=== PATIENT | male | born 1960 | race American Indian/Alaskan Native ===

== ENCOUNTER 2021-04-03 20:25 | Emergency (ER) | payer OTHER ==
--- NOTE | 2021-04-03 20:51 | Event Note ---
ED Screening Note ED Screening Note: 60-year-old male smoker with a past medical history of hypertension and CAD presents emerge department complaining of 1 day history of left-sided substernal chest pressure which worsens with activity. Ports no coughing, no fever chills sweats. No hemoptysis. This initial assessment/diagnostic orders/clinical plan/treatment(s) is/are subject to change based on patients health status, clinical progression and re- assessment by fellow clinical providers in the ED. Further treatment and workup at subsequent clinical providers discretion. Patient/guardian urged not to elope from the ED as their condition may be serious if not clinically assessed and managed. Initial orders include: Chest pain protocol
[2021-04-03] MEDS ORDERED: hydrALAZINE 20 MG/1 ML INJ IV ONE (21:17)
[2021-04-03 21:19] LABS: Basophils # (Auto) 0.1 K/mm3 (0.0-0.1); Basophils % (Auto) 1.9 % (0.0-1.8); Eosinophils # (Auto) 0.5 K/mm3 (0.0-0.4); Eosinophils % (Auto) 8.5 % (0.0-4.3); Lymphocytes # (Auto) 1.3 K/mm3 (1.2-5.4); Lymphocytes % (Auto) 21.1 % (13.4-35.0); Mean Corpuscular HGB Conc 35 % (32-34); Mean Corpuscular Volume 98 fl (84-94); Monocytes # (Auto) 0.5 K/mm3 (0.0-0.8); Monocytes % (Auto) 9.1 % (0.0-7.3); Platelet Count 160 K/mm3 (140-440); Red Blood Count 5.23 M/mm3 (3.65-5.03); Red Cell Distribution Width 13.9 % (13.2-15.2)
--- NOTE | 2021-04-03 21:25 | XRay Report ---
CHEST 1 VIEW INDICATION: Chest Pain. COMPARISON: None FINDINGS: SUPPORT DEVICES: None. HEART: Within normal limits. LUNGS/PLEURA: No acute air space or interstitial disease. ADDITIONAL FINDINGS: None. IMPRESSION: 1. No acute findings. Signer Name: Erik Galeas MD Signed: 04/03/2021 9:20 PM Workstation Name: [id number]
[2021-04-03 21:38] LABS: Alanine Aminotransferase 101 units/L (7-56); Albumin 4.3 g/dL (3.9-5); BUN/Creatinine Ratio 13; Blood Urea Nitrogen 10 mg/dL (9-20); Calcium 9.1 mg/dL (8.4-10.2); Hemolysis Index 6
[2021-04-03] MEDS ORDERED: THIAMINE 100 MG TAB PO ONE (21:42)
[2021-04-03] MEDS ORDERED: MULTIVITAMINS ,THERAPEUTIC TAB PO ONE (21:42)
--- NOTE | 2021-04-03 21:47 | Emergency Department Report ---
ED Chest Pain HPI - General Chief Complaint: Chest Pain Stated Complaint: HEART ISSUES Time Seen by Provider: 04/03/21 20:50 Source: patient Mode of arrival: Ambulatory Limitations: No Limitations - History of Present Illness Initial Comments: This is a 60-year-old -[place] male presents to the emergency department with a complaint of midsternal chest pain that started just prior to presentation. It is associated with some shortness of breath, but the patient denies any nausea, vomiting, diaphoresis. Patient does admit to alcohol use, including today, but denies any history of alcohol dependence or withdrawal syndrome. He also admits to tobacco use, but denies any illicit drug use. He has a past medical history of peripheral arterial disease, hypertension, coronary disease with [address] Patient does not have a local primary care physician or destination imagination coordinator as he says he moved here from [place] about 1 week ago. He last had a stress test about 2 or 3 years ago. - Related Data Allergies Allergy/AdvReac Type Severity Reaction Status Date / Time No Known Allergies Allergy Unverified 04/03/21 20:36 Heart Score - HEART Score History: Slightly suspicious EKG: Non-specific Age: 45-65 Risk factors: > 3 risk factors or hx of atherosclerotic disease Troponin: < normal limit HEART Score: 4 - EKG Read Time Time EKG Completed: 20:28 EKG Read Time: 20:30 - Critical Actions Critical Actions: 4-6 pts:12-16.6% risk of adverse cardiac event. Should be admitted ED Review of Systems ROS: Stated complaint: HEART ISSUES Other details as noted in HPI Comment: All other systems reviewed and negative Constitutional: denies: chills, fever Eyes: denies: eye pain, vision change ENT: denies: ear pain, throat pain Respiratory: shortness of breath. denies: cough Cardiovascular: chest pain. denies: palpitations Gastrointestinal: denies: abdominal pain, vomiting Genitourinary: denies: dysuria, discharge Musculoskeletal: denies: joint swelling, arthralgia Skin: denies: rash, lesions Neurological: denies: headache, weakness ED Physical Exam - General Limitations: No Limitations - Other Other exam information: GENERAL: The patient is well-developed well-nourished. HENT: Normocephalic. Atraumatic. Patient has moist mucous membranes. EYES: Extraocular motions are intact. NECK: Supple. Trachea is midline. CHEST/LUNGS: Clear to auscultation. There is no respiratory distress noted. HEART/CARDIOVASCULAR: Regular. There is no tachycardia. There is no murmur. ABDOMEN: Abdomen is soft, nontender. Patient has normal bowel sounds. There is no abdominal distention. SKIN: Skin is warm and dry. NEURO: The patient is awake, alert, and oriented. The patient is cooperative. Normal speech. MUSCULOSKELETAL: There is no tenderness or deformity. There is no limitation range of motion. ED Course Vital Signs 04/03/21 04/03/21 04/03/21 20:33 20:37 22:00 Temperature 97.4 F L 97.8 F Pulse Rate 104 H 88 Respiratory 18 20 Rate Blood Pressure 214/134 Blood Pressure 152/99 [Left] O2 Sat by Pulse 98 Oximetry 04/04/21 00:00 Temperature Pulse Rate 89 Respiratory 20 Rate Blood Pressure Blood Pressure 142/90 [Left] O2 Sat by Pulse 97 Oximetry PRANAV score - Pranav Score Age > 65: (0) No Aspirin use within the Past 7 Days: (0) No 3 or more CAD Risk Factors: (1) Yes 2 or more Angina events in past 24 hrs: (1) Yes Known CAD with more than 50% Stenosis: (1) Yes Elevated Cardiac Markers: (0) No ST Deviation Greater than 0.5mm: (1) Yes PRANAV Score: 4 ED Medical Decision Making - Lab Data Result diagrams: 04/03/21 20:56 04/03/21 20:56 Lab Results 04/03/21 04/03/21 04/03/21 Range/Units 20:56 20:56 20:59 WBC 6.0 (4.5-11.0) K/mm3 RBC 5.23 H (3.65-5.03) M/mm3 Hgb 18.0 H (11.8-15.2) gm/dl Hct 51.0 H (35.5-45.6) % MCV 98 H (84-94) fl MCH 34 H (28-32) pg MCHC 35 H (32-34) % RDW 13.9 (13.2-15.2) % Plt Count 160 (140-440) K/mm3 Lymph % (Auto) 21.1 (13.4-35.0) % [place] % (Auto) 9.1 H (0.0-7.3) % Eos % (Auto) 8.5 H (0.0-4.3) % Baso % (Auto) 1.9 H (0.0-1.8) % Lymph # (Auto) 1.3 (1.2-5.4) K/mm3 [place] # (Auto) 0.5 (0.0-0.8) K/mm3 Eos # (Auto) 0.5 H (0.0-0.4) K/mm3 Baso # (Auto) 0.1 (0.0-0.1) K/mm3 Seg Neutrophils % 59.4 (40.0-70.0) % Seg Neutrophils # 3.6 (1.8-7.7) K/mm3 Sodium 138 (137-145) mmol/L Potassium 3.2 L (3.6-5.0) mmol/L Chloride 100.4 (98-107) mmol/L Carbon Dioxide 27 (22-30) mmol/L Anion Gap 14 mmol/L BUN 10 (9-20) mg/dL Creatinine 0.8 (0.8-1.3) mg/dL Estimated GFR > 60 ml/min BUN/Creatinine Ratio 13 % Glucose 98 (75-100) mg/dL Calcium 9.1 (8.4-10.2) mg/dL Total Bilirubin 0.30 (0.1-1.2) mg/dL AST 123 H (5-40) units/L ALT 101 H (7-56) units/L Alkaline Phosphatase 45 (35-129) units/L Troponin T < 0.010 (0.00-0.029) ng/mL Total Protein 7.6 (6.3-8.2) g/dL Albumin 4.3 (3.9-5) g/dL Albumin/Globulin Ratio 1.3 % Plasma/Serum Alcohol 0.29 H (0-0.07) % - EKG Data -: EKG Interpreted by Or EKG shows normal: sinus rhythm, axis, intervals, QRS complexes (LVH), ST-T waves (Anterolateral ST depressions) Rate: tachycardia (108 bpm) - EKG Data When compared to previous EKG there are: previous EKG unavailable Interpretation: other (Sinus tachycardia at 108 bpm, LVH, ST depressions in the anterior lateral leads. No ST elevation OR) - Radiology Data Radiology results: image reviewed interpreted by me: Chest x-ray does not show any acute process. There are no pleural effusions, obvious pneumonia and there is no pneumothorax. No widened mediastinum. - Medical Decision Making This patient presented to the emergency department with a complaint of substernal chest pain that started just prior to presentation. However, by the time of my initial evaluation the patient says that his chest pain has resolved and he is asymptomatic. His EKG showed some ST depressions to the anterior lateral leads, but no ST elevation. Chest x-ray does not show any pneumonia, pleural effusions, pneumothorax, widened mediastinum, or any other acute process. Patient's initial labs were mostly unremarkable including CBC, metabolic panel, and a negative troponin. However the blood alcohol level did come back at 0.29. The patient's initial blood pressure was a systolic greater than 200. However came down to a much more reasonable level, about systolic 140, without any antihypertensive medication given. I spoke to the patient in great detail regarding his lab and imaging results. We discussed his heart and PRANAV score which came back moderate, and for this reason I explained my recommendation for the patient to be admitted to the hospital for further evaluation and treatment. At this point the patient refuses admission. He says that he has been pain-free since he got back to the main emergency department and says that he has outpatient follow-up for cardiology through the [facility]. I once again explained to the patient that, while his initial troponin and evaluation has been negative, that his work-up has not yet been completed and that he is a moderate risk for an adverse cardiac event. The patient's initial alcohol level was 0.29. At the time of this discussion with the patient, his blood alcohol level was more likely closer to 0.2. He appears clinically sober. He is awake, oriented, AAO x3, and appears to have a normal decision-making capacity. I explained to the patient that leaving AGAINST MEDICAL ADVICE at this time could lead to a return of his chest pain, heart attack, debility, coma or even . Despite understanding these risks the patient has decided to leave [facility] and has signed the papers. Due to his alcohol, however, the patient was not allowed to leave on his own volition and he called for his friend Berny to come and pick him up and take responsibility for him. We did visualize Berny before the patient was released. The patient understands that he can return to this emergency department at any time if he changes his mind about admission, further evaluation, or with any acute distress. Critical Care Time: No Critical care attestation.: If time is entered above; I have spent that time in minutes in the direct care of this critically ill patient, excluding procedure time. ED Disposition Clinical Impression: Acute chest pain, Tobacco use disorder Hypertension Qualifiers: Hypertension type: primary hypertension Qualified Code(s): I10 - Essential (primary) hypertension Alcohol intoxication Qualifiers: Complication of substance-induced condition: uncomplicated Qualified Code(s): F10.920 - Alcohol use, unspecified with intoxication, uncomplicated Disposition: 07 LEFT AGAINST MEDICAL ADVICE Is pt being admited?: No Instructions: Nonspecific Chest Pain, Adult, Tobacco Use Disorder, Hype rtension, Adult, Chest Pain (ED), Hypertension (ED) Additional Instructions: Return to the emergency department if you change your mind about further evaluation, with any return of your chest pain, or with any acute distress. Please try and quit smoking. Referrals: [facility] [Primary Care Provider] - [facility] Forms: AMA Form Time of Disposition: 23:26
[2021-04-03] MEDS ORDERED: ASPIRIN 81 MG TAB CHEW PO ONE (23:06)
[2021-04-03] MEDS ORDERED: POTASSIUM CHLORIDE ER 20 MEQ TAB PO ONE (23:06)
[2021-04-03] MEDS ORDERED: THIAMINE 100 MG, FOLIC ACID 1 MG, MULTIPLE VITAMIN INJ, ADULT 10 ML in SODIUM CHLORIDE ... IV ONE (23:46)
[2021-04-04 00:42] VITALS: BP 142/90
--- NOTE | 2021-04-04 14:50 | Electrocardiograph Report ---
[facility] Test Date: 2021-04-03 Test Time: 20:28:55 Pat Name: QUETA NATH Department: Room: Gender: M [employer]: : 1960 Requested By: VISHNU MUNOZ Order Number: [id number] Reading MD: Miles Ward Measurements Intervals [place] Rate: 108 P: 70 CA: 171 QRS: 72 QRSD: 99 T: 58 QT: 339 QTc: 456 Interpretive Statements Sinus tachycardia Repol abnrm suggests ischemia, diffuse leads No previous ECG available for comparison Electronically Signed On 04-04-2021 14:50:23 EDT by Miles Ward
== END 2021-04-04 00:30 | disposition left against medical advice (07) ==
LOC: ED 20:25
DX: R07.9 Chest pain, unspecified (principal); I10 Essential (primary) hypertension; F10.129 Alcohol abuse with intoxication, unspecified; F17.209 Nicotine dependence, unspecified, with unspecified nicotine-induced disorders
CPT/HCPCS: 36415; 71045; 80053; 84484; 85025; 93005; 99284; J3411; J7030; 80320; G0480